=== PATIENT | female | born 2000 | race American Indian/Alaskan Native ===

== ENCOUNTER 2021-05-12 12:49 | Emergency (ER) | payer OTHER ==
[2021-05-12] MEDS ORDERED: MECLIZINE 25 MG TAB PO ONE (15:59)
--- NOTE | 2021-05-12 16:11 | Emergency Department Report ---
ED General Adult HPI - General Chief complaint: Abdominal Pain Stated complaint: RIGHT ABD PAIN X1 MONTH Time Seen by Provider: 05/12/21 15:36 Source: patient Mode of arrival: Ambulatory Limitations: No Limitations - History of Present Illness Initial comments: Patient is a 21-year-old female presents emergency room complaints of right lower back pain for a month. She states that she is also been experiencing tinnitus in her right ear for a month. She states that today she was at work and she was experiencing the tinnitus and right lower back pain and then she began to feel dizziness and had nausea and vomiting. She denies any fever, diarrhea, dysuria ear drainage. Patient denies past medical history. She denies medication allergies. Last menstrual cycle 04/19/2021. - Related Data Previous Rx's Medication Instructions Recorded Last Taken Type Meclizine [Antivert] 25 mg PO TID PRN #30 tab 05/12/21 Unknown Rx Norgestimate-Ethinyl Estradiol 1 each PO DAILY #28 tab 05/12/21 Unknown Rx [Sprintec 28 Day Tablet] levoFLOXacin [Levaquin TAB] 500 mg PO QDAY 7 Days #7 tablet 05/12/21 Unknown Rx metroNIDAZOLE [Flagyl] 500 mg PO BID 7 Days #14 tab 05/12/21 Unknown Rx Allergies Allergy/AdvReac Type Severity Reaction Status Date / Time No Known Allergies Allergy Verified 05/12/21 15:02 ED Review of Systems ROS: Stated complaint: RIGHT ABD PAIN X1 MONTH Other details as noted in HPI Comment: All other systems reviewed and negative ED Past Medical Hx - Past Medical History Previous Medical History?: No - Surgical History Past Surgical History?: No - Medications Home Medications: Home Medications Medication Instructions Recorded Confirmed Last Taken Type Meclizine [Antivert] 25 mg PO TID PRN #30 tab 05/12/21 Unknown Rx Norgestimate-Ethinyl Estradiol 1 each PO DAILY #28 tab 05/12/21 Unknown Rx [Sprintec 28 Day Tablet] levoFLOXacin [Levaquin TAB] 500 mg PO QDAY 7 Days #7 tablet 05/12/21 Unknown Rx metroNIDAZOLE [Flagyl] 500 mg PO BID 7 Days #14 tab 05/12/21 Unknown Rx ED Physical Exam - General Limitations: No Limitations General appearance: alert, in no apparent distress - Head Head exam: Present: atraumatic, normocephalic - Eye Eye exam: Present: normal appearance - ENT ENT exam: Present: mucous membranes moist, other (left TM and canal are normal, right canal is normal, right TM has clear fluid with bubbles behind the TM) - Respiratory Respiratory exam: Present: normal lung sounds bilaterally. Absent: respiratory distress, wheezes, rales, rhonchi, stridor, chest wall tenderness, accessory muscle use, decreased breath sounds, prolonged expiratory - Cardiovascular Cardiovascular Exam: Present: regular rate, normal rhythm, normal heart sounds. Absent: systolic murmur, diastolic murmur, rubs, gallop - GI/Abdominal GI/Abdominal exam: Present: soft, normal bowel sounds. Absent: distended, tenderness, guarding, rebound, rigid - Back Exam Back exam: Present: CVA tenderness (R) (mild). Absent: CVA tenderness (L) - Neurological Exam Neurological exam: Present: alert, oriented X3 - Psychiatric Psychiatric exam: Present: normal affect, normal mood - Skin Skin exam: Present: warm, dry, intact ED Course Vital Signs 05/12/21 15:02 Temperature 98.5 F Pulse Rate 82 Respiratory 16 Rate Blood Pressure 128/92 [Left] O2 Sat by Pulse 99 Oximetry - Consultations Consultation #1: 05/12/21 21:[address] Masters, [employer] regarding patient history and results, he advised she can follow-up outpatient and advised to prescribe Sprintec, Flagyl, Levaquin. ED Medical Decision Making - Lab Data Result diagrams: 05/12/21 17:40 05/12/21 16:09 Lab Results 05/12/21 05/12/21 05/12/21 Range/Units 16:09 16:09 17:40 WBC 14.5 H (4.5-11.0) K/mm3 RBC 4.43 (3.65-5.03) M/mm3 Hgb 12.0 (10.1-14.3) gm/dl Hct 36.5 (30.3-42.9) % MCV 82 (79-97) fl MCH 27 L (28-32) pg MCHC 33 (30-34) % RDW 13.5 (13.2-15.2) % Plt Count 480 H (140-440) K/mm3 Lymph % (Auto) 22.8 (13.4-35.0) % Pender % (Auto) 7.3 (0.0-7.3) % Eos % (Auto) 1.6 (0.0-4.3) % Baso % (Auto) 0.4 (0.0-1.8) % Lymph # (Auto) 3.3 (1.2-5.4) K/mm3 Pender # (Auto) 1.1 H (0.0-0.8) K/mm3 Eos # (Auto) 0.2 (0.0-0.4) K/mm3 Baso # (Auto) 0.1 (0.0-0.1) K/mm3 Seg Neutrophils % 67.9 (40.0-70.0) % Seg Neutrophils # 9.8 H (1.8-7.7) K/mm3 Sodium 139 (137-145) mmol/L Potassium 3.9 (3.6-5.0) mmol/L Chloride 100.5 (98-107) mmol/L Carbon Dioxide 23 (22-30) mmol/L Anion Gap 19 mmol/L BUN 7 (7-17) mg/dL Creatinine 0.6 (0.6-1.2) mg/dL Estimated GFR > 60 ml/min BUN/Creatinine Ratio 12 % Glucose 82 (65-100) mg/dL Calcium 9.8 (8.4-10.2) mg/dL Total Bilirubin < 0.20 (0.1-1.2) mg/dL AST 13 (5-40) units/L ALT 15 (7-56) units/L Alkaline Phosphatase 84 (35-129) units/L Total Protein 9.0 H (6.3-8.2) g/dL Albumin 4.6 (3.9-5) g/dL Albumin/Globulin Ratio 1.0 % Lipase 19 (13-60) units/L HCG, Qual Negative (Negative) Urine Color (Yellow) Urine Turbidity (Clear) Urine pH (5.0-7.0) Ur Specific [place] (1.003-1.030) Urine Protein (Negative) mg/dL Urine Glucose (UA) (Negative) mg/dL Urine Ketones (Negative) mg/dL Urine Blood (Negative) Urine Nitrite (Negative) Urine Bilirubin (Negative) Urine Urobilinogen (<2.0) mg/dL Ur Leukocyte Esterase (Negative) Urine WBC (Auto) (0.0-6.0) /HPF Urine RBC (Auto) (0.0-6.0) /HPF U Epithel Cells (Auto) (0-13.0) /HPF Urine Mucus /HPF 05/12/21 Range/Units Unknown WBC (4.5-11.0) K/mm3 RBC (3.65-5.03) M/mm3 Hgb (10.1-14.3) gm/dl Hct (30.3-42.9) % MCV (79-97) fl MCH (28-32) pg MCHC (30-34) % RDW (13.2-15.2) % Plt Count (140-440) K/mm3 Lymph % (Auto) (13.4-35.0) % Pender % (Auto) (0.0-7.3) % Eos % (Auto) (0.0-4.3) % Baso % (Auto) (0.0-1.8) % Lymph # (Auto) (1.2-5.4) K/mm3 Pender # (Auto) (0.0-0.8) K/mm3 Eos # (Auto) (0.0-0.4) K/mm3 Baso # (Auto) (0.0-0.1) K/mm3 Seg Neutrophils % (40.0-70.0) % Seg Neutrophils # (1.8-7.7) K/mm3 Sodium (137-145) mmol/L Potassium (3.6-5.0) mmol/L Chloride (98-107) mmol/L Carbon Dioxide (22-30) mmol/L Anion Gap mmol/L BUN (7-17) mg/dL Creatinine (0.6-1.2) mg/dL Estimated GFR ml/min BUN/Creatinine Ratio % Glucose (65-100) mg/dL Calcium (8.4-10.2) mg/dL Total Bilirubin (0.1-1.2) mg/dL AST (5-40) units/L ALT (7-56) units/L Alkaline Phosphatase (35-129) units/L Total Protein (6.3-8.2) g/dL Albumin (3.9-5) g/dL Albumin/Globulin Ratio % Lipase (13-60) units/L HCG, Qual (Negative) Urine Color Yellow (Yellow) Urine Turbidity Clear (Clear) Urine pH 9.0 H (5.0-7.0) Ur Specific [place] 1.021 (1.003-1.030) Urine Protein <15 mg/dl (Negative) mg/dL Urine Glucose (UA) Neg (Negative) mg/dL Urine Ketones Neg (Negative) mg/dL Urine Blood Neg (Negative) Urine Nitrite Neg (Negative) Urine Bilirubin Neg (Negative) Urine Urobilinogen < 2.0 (<2.0) mg/dL Ur Leukocyte Esterase Neg (Negative) Urine WBC (Auto) 1.0 (0.0-6.0) /HPF Urine RBC (Auto) < 1.0 (0.0-6.0) /HPF U Epithel Cells (Auto) 4.0 (0-13.0) /HPF Urine Mucus Few /HPF - Radiology Data Radiology results: report reviewed Ordering Physician: LORI SALAZAR Date of Service: 05/12/21 Procedure(s): CT abdomen pelvis wo con Accession Number(s): [id number] cc: LORI SALAZAR CT ABDOMEN AND PELVIS WITHOUT CONTRAST INDICATION / CLINICAL INFORMATION: right flank pain. TECHNIQUE: Axial CT images were obtained through the abdomen and pelvis without IV contrast. All CT scans at this location are performed using CT dose reduction for ALARA by means of automated exposure control. COMPARISON: None available. FINDINGS: LOWER CHEST: No significant abnormality. AORTA / ARTERIES: No significant abnormality. IVC / VEINS: No significant abnormality. LYMPH NODES: No significant adenopathy. COLON: No significant abnormality. APPENDIX: No significant abnormality. STOMACH / SMALL BOWEL: No significant abnormality. PERITONEUM: No free fluid. No free air. No fluid collection. LIVER: No significant abnormality. GALLBLADDER: No significant abnormality. BILE DUCTS: No significant abnormality. PANCREAS: No significant abnormality. SPLEEN: No significant abnormality. ADRENALS: No significant abnormality. RIGHT KIDNEY / URETER: No significant abnormality. LEFT KIDNEY / URETER: No significant abnormality. URINARY BLADDER: No significant abnormality. REPRODUCTIVE ORGANS: Prominent low attenuation lesions are noted in the bilateral adnexa which have a slightly tubular appearance to them suggesting either hydrosalpinx or tubo- ovarian abscess. Ovaries are not well seen and these lesions may also be related to the bilateral ovaries. SKELETAL SYSTEM: No significant abnormality. ADDITIONAL FINDINGS: None. IMPRESSION: 1. Prominent low attenuation lesions are noted in the bilateral adnexa which have a slightly tubular appearance to them suggesting either hydrosalpinx or tubo-ovarian ab scess. Ovaries are not well seen and these lesions may also be related to the bilateral ovaries. Co nsider pelvic ultrasound for further evaluation. Signer Name: Mark An DO Signed: 05/12/2021 6:29 PM Workstation Name: [id number] Transcribed By: STEW Dictated By: MARK AN DO Electronically Authenticated By: MARK AN DO Signed Date/Time: 05/12/211828 DD/ 24 TD/TT: Ordering Physician: LORI SALAZAR Date of Service: 05/12/21 Procedure(s): US pelvic complete Accession Number(s): [id number] cc: LORI SALAZAR ULTRASOUND PELVIS INDICATION / CLINICAL INFORMATION: low back pain, n/v, abnormal CT. TECHNIQUE: Transabdominal. Duplex Color Doppler used: Yes. COMPARISON: None available FINDINGS: UTERUS: Uterus measures 6.3 cm in length. Endometrial stripe measures 9 mm. No focal uterine abnormality is seen. RIGHT ADNEXA: Right ovary measures 6.6 cm in length. There is a 5 x 5 x 4.9 cm complex cystic structure in the right adnexa which could represent an ovarian cyst. . Normal color Doppler blood flow. LEFT ADNEXA: The left ovary measures 6.8 cm in length. There is a 5.1 x 4.8 x 4.1 cm complex cystic structure in the left adnexa likely representing ovarian cyst. There is fluid noted in the left tube.. Normal color Doppler blood flow. URINARY BLADDER: No significant abnormality. FREE FLUID: None. ADDITIONAL FINDINGS: None. IMPRESSION: 1. There are complex cysts noted in both ovaries. There is hydrosalpinx noted on the left. The possibility that this could represent tubo-ovarian abscess is included in the differential diagnosis. Signer Name: John Babin MD Signed: 05/12/2021 8:48 PM Workstation Name: [id number] Transcribed By: SS Dictated By: John Babin MD Electronically Authenticated By: John Babin MD Signed Date/Time: 05/12/212047 DD/ 43 TD/TT: - Medical Decision Making Patient is a 21-year-old female presents emergency room complaints of right lower back pain for a month. She states that she is also been experiencing tinnitus in her right ear for a month. She states that today she was at work and she was experiencing the tinnitus and right lower back pain and then she began to feel dizziness and had nausea and vomiting. She denies any fever, diarrhea, dysuria ear drainage. Patient denies past medical history. She denies medication allergies. Last menstrual cycle 04/19/2021. vss. on exam pt has right CVAT, no abd ttp. labs with WBC 14.5, otherwise stable. UA without evidence of UTI. CT abd pelvis with contrast: 1. Prominent low attenuation lesions are noted in the bilateral adnexa which have a slightly tubular appearance to them suggesting either hydrosalpinx or tubo-ovarian abscess. Ovaries are not well seen and these lesions may also be related to the bilateral ovaries. Consider pelvic ultrasound for further evaluation. US OB: 1. There are complex cysts noted in both ovaries. There is hydrosalpinx noted on the left. The possibility that this could represent tubo-ovarian abscess is included in the differential diagnosis. Spoke with Dr. Masters, [employer] regarding patient history and results, he advised she can follow-up outpatient and advised to prescribe Sprintec, Flagyl, Levaquin. pt is tolerating PO intake, she is in no pain, she is tolerating PO, she has had no vomiting. advised pt Please take medication as prescribed. Increase your fluid intake. Follow-up with a [employer]ODUCTION [employer]ER. Follow-up with a search marketing analyst. Return to emergency room immediately for any new or worsening symptoms including but not limited to worsening pain, continued vomiting, unable to tolerate p.o. intake, fever, chills, etc. Critical care attestation.: If time is entered above; I have spent that time in minutes in the direct care of this critically ill patient, excluding procedure time. ED Disposition Clinical Impression: Right flank pain, Complex cyst of both ovaries, Hydrosalpinx Serous otitis media Qualifiers: Chronicity: acute Laterality: right Recurrence: non-recurrent Qualified Code(s): H65.01 - Acute serous otitis media, right ear Disposition: HOME / SELF CARE / HOMELESS Is pt being admited?: No Does the pt Need Aspirin: No Condition: Stable Instructions: Ovarian Cyst, [id number], Abdominal Pain (ED) Additional Instructions: Please take medication as prescribed. Increase your fluid intake. Follow-up with a [employer]ODUCTION [employer]ER. Follow-up with a search marketing analyst. Return to emergency room immediately for any new or worsening symptoms including but not limited to worsening pain, continued vomiting, unable to tolerate p.o. intake, fever, chills, etc. Prescriptions: Meclizine [Antivert] 25 mg PO TID PRN #30 tab PRN Reason: Vertigo metroNIDAZOLE [Flagyl] 500 mg PO BID 7 Days #14 tab levoFLOXacin [Levaquin TAB] 500 mg PO QDAY 7 Days #7 tablet Norgestimate-Ethinyl Estradiol [Sprintec 28 Day Tablet] 1 each PO DAILY #28 tab Referrals: ROBYN LI MD [Staff Physician] - 3-5 Days IRMA GRANGER MD [Staff Physician] - 2-3 Days (city bailiff ) Time of Disposition: 21:04 Print Language: ITALIAN
[2021-05-12 17:16] LABS: Alanine Aminotransferase 15 units/L (7-56); Albumin 4.6 g/dL (3.9-5); Blood Urea Nitrogen 7 mg/dL (7-17); Calcium 9.8 mg/dL (8.4-10.2); Hemolysis Index 1
[2021-05-12 17:17] LABS: BUN/Creatinine Ratio 12
[2021-05-12 17:21] LABS: Bilirubin,Urine NEG (Negative); Blood,Urine NEG (Negative); Color,Urine Yellow (Yellow); Mucus,Urine FEW /HPF; Protein,Urine <15 mg/dL mg/dL (Negative); RBC,Urine < 1.0 /HPF (0.0-6.0); Urobilinogen,Urine < 2.0 mg/dL (<2.0)
[2021-05-12 17:47] LABS: Basophils # (Auto) 0.1 K/mm3 (0.0-0.1); Basophils % (Auto) 0.4 % (0.0-1.8); Eosinophils # (Auto) 0.2 K/mm3 (0.0-0.4); Eosinophils % (Auto) 1.6 % (0.0-4.3); Hematocrit 36.5 % (30.3-42.9); Lymphocytes # (Auto) 3.3 K/mm3 (1.2-5.4); Lymphocytes % (Auto) 22.8 % (13.4-35.0); Mean Corpuscular HGB Conc 33 % (30-34); Mean Corpuscular Volume 82 fl (79-97); Monocytes # (Auto) 1.1 K/mm3 (0.0-0.8); Monocytes % (Auto) 7.3 % (0.0-7.3); Platelet Count 480 K/mm3 (140-440); Red Blood Count 4.43 M/mm3 (3.65-5.03); Red Cell Distribution Width 13.5 % (13.2-15.2)
--- NOTE | 2021-05-12 18:33 | Cat Scan Report ---
CT ABDOMEN AND PELVIS WITHOUT CONTRAST INDICATION / CLINICAL INFORMATION: right flank pain. TECHNIQUE: Axial CT images were obtained through the abdomen and pelvis without IV contrast. All CT scans at this location are performed using CT dose reduction for ALARA by means of automated exposure control. COMPARISON: None available. FINDINGS: LOWER CHEST: No significant abnormality. AORTA / ARTERIES: No significant abnormality. IVC / VEINS: No significant abnormality. LYMPH NODES: No significant adenopathy. COLON: No significant abnormality. APPENDIX: No significant abnormality. STOMACH / SMALL BOWEL: No significant abnormality. PERITONEUM: No free fluid. No free air. No fluid collection. LIVER: No significant abnormality. GALLBLADDER: No significant abnormality. BILE DUCTS: No significant abnormality. PANCREAS: No significant abnormality. SPLEEN: No significant abnormality. ADRENALS: No significant abnormality. RIGHT KIDNEY / URETER: No significant abnormality. LEFT KIDNEY / URETER: No significant abnormality. URINARY BLADDER: No significant abnormality. REPRODUCTIVE ORGANS: Prominent low attenuation lesions are noted in the bilateral adnexa which have a slightly tubular appearance to them suggesting either hydrosalpinx or tubo-ovarian abscess. Ovaries are not well seen and these lesions may also be related to the bilateral ovaries. SKELETAL SYSTEM: No significant abnormality. ADDITIONAL FINDINGS: None. IMPRESSION: 1. Prominent low attenuation lesions are noted in the bilateral adnexa which have a slightly tubular appearance to them suggesting either hydrosalpinx or tubo-ovarian abscess. Ovaries are not well seen and these lesions may also be related to the bilateral ovaries. Consider pelvic ultrasound for furthe r evaluation. Signer Name: Mark Velez DO Signed: 05/12/2021 6:29 PM Workstation Name: [id number]
--- NOTE | 2021-05-12 20:52 | Ultrasound Report ---
ULTRASOUND PELVIS INDICATION / CLINICAL INFORMATION: low back pain, n/v, abnormal CT. TECHNIQUE: Transabdominal. Duplex Color Doppler used: Yes. COMPARISON: None available FINDINGS: UTERUS: Uterus measures 6.3 cm in length. Endometrial stripe measures 9 mm. No focal uterine abnormal ity is seen. RIGHT ADNEXA: Right ovary measures 6.6 cm in length. There is a 5 x 5 x 4.9 cm complex cystic structu re in the right adnexa which could represent an ovarian cyst. . Normal color Doppler blood flow. LEFT ADNEXA: The left ovary measures 6.8 cm in length. There is a 5.1 x 4.8 x 4.1 cm complex cystic s tructure in the left adnexa likely representing ovarian cyst. There is fluid noted in the left tube.. Normal color Doppler blood flow. URINARY BLADDER: No significant abnormality. FREE FLUID: None. ADDITIONAL FINDINGS: None. IMPRESSION: 1. There are complex cysts noted in both ovaries. There is hydrosalpinx noted on the left. The possib ility that this could represent tubo-ovarian abscess is included in the differential diagnosis. Signer Name: John Babin MD Signed: 05/12/2021 8:48 PM Workstation Name: [id number]
[2021-05-12 22:17] VITALS: BP 138/95
== END 2021-05-12 22:10 | disposition home or self-care (01) ==
LOC: ED 12:49
DX: N83.292 Other ovarian cyst, left side (principal); N83.291 Other ovarian cyst, right side; R10.9 Unspecified abdominal pain; N70.11 Chronic salpingitis; H65.01 Acute serous otitis media, right ear; Z79.899 Other long term (current) drug therapy
CPT/HCPCS: 36415; 74176; 76856; 80053; 81001; 83690; 84703; 85025; 99284